=== PATIENT | female | born 1990 | race Caucasian/White ===

== ENCOUNTER 2020-07-26 15:14 | Outpatient (CLI) | payer OTHER, SELFPAY ==
[2020-07-26 16:13] LABS: Basophils Percent Auto 0.3 % (0.2-1.2); Eosinophils Absolute Auto 0.1 K/mm3 (0-0.3); Eosinophils Percent Auto 1.2 % (0-4.4); Hemoglobin 12.4 g/dL (12.0-15.0); Immature Granulocyte Absolute 0.08 K/mm3 (0.00-0.031); Immature Granulocyte Percent A 0.9 % (0-0.5); Lymphocytes Absolute Auto 1.65 K/mm3 (0.9-3.2); Lymphocytes Percent Auto 17.5 % (18.3-44.2); Mean Corpuscular HGB Conc 35.4 g/dl (32-36); Mean Corpuscular Hemoglobin 31.4 pg (26-34); Mean Corpuscular Volume 88.6 fl (80-100); Mean Platelet Volume 10.2 fl (7.4-10.4); Monocytes Absolute Auto 0.6 K/mm3 (0.1-0.6); Monocytes Percent Auto 6.3 % (2.6-8.5); Neutrophils Percent Auto 73.8 % (45.5-73.1); Platelet Count Result 160 k/mm3 (150-375); Red Blood Count 3.95 M/mm3 (4.2-5.4); Red Cell Distribution Width 13.4 % (11.5-14.5); White Blood Count 9.4 K/mm3 (4.5-10.0)
[2020-07-26 16:18] LABS: Add Urine Microscopic? YES; Appearance Urine Cloudy (Clear); Bacteria Urine Trace /hpf; Bilirubin Urine Negative (Negative); Blood Urine Negative (Negative); Color Urine Yellow (Yellow); Glucose Urine UA Negative (Negative); Ketones Urine Negative (Negative); Leukocyte Esterase Ur Trace LEU/UL (NEGATIVE); Mucus Urine Moderate /lpf; Nitrate Urine Negative (Negative); Protein Urine 1+ mg/dL (Negative); RBC Urine 0-2 /hpf (0-2); Specific Grav Ur 1.018 (1.001-1.035); Squamous Epithelial Cell Urine Moderate /hpf (Few); WBC Urine 0-3 /hpf (0-3)
[2020-07-26 16:55] LABS: Thyroid Stimulating Hormone 0.403 uIU/mL (0.465-4.680)
[2020-07-26 17:04] LABS: HIV 1/2 Ab P24 Ag Result Negative (Negative)
[2020-07-26 17:51] LABS: Vitamin D 25 Hydroxy 50.2 ng/mL
[2020-07-26 18:12] LABS: Hepatitis B Surface Antigen Negative (Negative); Rubella IgG Antibody 33.6 IU/ML
[2020-07-26 18:22] LABS: Hepatitis C Virus Antibody Negative (Negative)
[2020-07-27 07:00] LABS: Rapid Plasma Reagin Non-Reactive (NonReactive)
[2020-07-31 22:33] LABS: Hemoglobin 12.2 g/dL (11.7-15.5); MCH 32.2 pg (27.0-33.0); MCV 92.2 FL (80.0-100.0)
== END 2020-07-26 15:15 | disposition home or self-care (01) ==
PROVIDERS: PCP Physician Assistant; Visit Provider Student in an Organized Health Care Education/Training Program
DX: Z34.82 Encounter for supervision of other normal pregnancy, second trimester (principal); Z3A.00 Weeks of gestation of pregnancy not specified
CPT/HCPCS: 36415; 81001; 82306; 83021; 84443; 85025; 86592; 86703; 86762; 86787; 86803; 86850; 86900; 86901; 87086; 87340; G0432

== ENCOUNTER 2020-08-01 13:56 | Outpatient (CLI) | payer OTHER, SELFPAY ==
[2020-08-01 16:06] LABS: Thyroid Stimulating Hormone 0.673 uIU/mL (0.465-4.680)
[2020-08-01 16:10] LABS: Total Triiodothyronine (T3) 1.42 NG/ML (0.97-1.69)
== END 2020-08-01 13:57 | disposition home or self-care (01) ==
PROVIDERS: PCP Physician Assistant; Visit Provider Student in an Organized Health Care Education/Training Program
DX: Z34.82 Encounter for supervision of other normal pregnancy, second trimester (principal); Z3A.00 Weeks of gestation of pregnancy not specified
CPT/HCPCS: 36415; 84436; 84443; 84480

== ENCOUNTER 2020-09-26 11:21 | Outpatient (CLI) | payer OTHER, SELFPAY ==
[2020-09-26 12:50] LABS: Basophils Absolute Auto 0.1 K/mm3 (0.0-0.1); Basophils Percent Auto 0.5 % (0.2-1.2); Eosinophils Absolute Auto 0.2 K/mm3 (0-0.3); Eosinophils Percent Auto 1.5 % (0-4.4); Hematocrit 35.3 % (37.0-47.0); Hemoglobin 12.3 g/dL (12.0-15.0); Immature Granulocyte Absolute 0.11 K/mm3 (0.00-0.031); Lymphocytes Absolute Auto 1.76 K/mm3 (0.9-3.2); Lymphocytes Percent Auto 15.9 % (18.3-44.2); Mean Corpuscular HGB Conc 34.8 g/dl (32-36); Mean Corpuscular Hemoglobin 31.7 pg (26-34); Mean Platelet Volume 10.5 fl (7.4-10.4); Monocytes Absolute Auto 0.6 K/mm3 (0.1-0.6); Monocytes Percent Auto 5.1 % (2.6-8.5); Neutrophils Absolute Auto 8.4 K/mm3 (1.3-6.7); Platelet Count Result 136 k/mm3 (150-375); Red Blood Count 3.88 M/mm3 (4.2-5.4); Red Cell Distribution Width 13.1 % (11.5-14.5); White Blood Count 11.1 K/mm3 (4.5-10.0)
[2020-09-26 13:16] LABS: Glucose 1 Hour PP 50gm Dose 137 mg/dL
== END 2020-09-26 11:22 | disposition home or self-care (01) ==
PROVIDERS: PCP Physician Assistant; Visit Provider Student in an Organized Health Care Education/Training Program
DX: Z34.82 Encounter for supervision of other normal pregnancy, second trimester (principal); Z3A.00 Weeks of gestation of pregnancy not specified
CPT/HCPCS: 36415; 82947; 85025

== ENCOUNTER 2020-10-06 09:02 | Outpatient (CLI) | payer OTHER, SELFPAY ==
[2020-10-06 10:14] LABS: Glucose Fasting Gestational 80 mg/dL (>/=95)
[2020-10-06 13:30] LABS: Glucose 2 Hour Gest 120 mg/dL (>/= 155)
[2020-10-06 14:01] LABS: Glucose 1 Hour Gest 125 mg/dL (>/=180)
[2020-10-06 15:45] LABS: Glucose 3 Hour Gest 96 mg/dL (>/=140)
== END 2020-10-06 09:03 | disposition home or self-care (01) ==
LOC: ANHLAB 09:04
PROVIDERS: PCP Physician Assistant; Visit Provider Student in an Organized Health Care Education/Training Program
DX: R73.09 Other abnormal glucose (principal)
CPT/HCPCS: 36415; 82951; 82952

== ENCOUNTER 2020-10-27 14:54 | Outpatient (CLI) | payer OTHER, SELFPAY ==
[2020-10-27 15:21] LABS: Basophils Absolute Auto 0.1 K/mm3 (0.0-0.1); Basophils Percent Auto 0.4 % (0.2-1.2); Eosinophils Absolute Auto 0.4 K/mm3 (0-0.3); Eosinophils Percent Auto 2.8 % (0-4.4); Hemoglobin 12.7 g/dL (12.0-15.0); Immature Granulocyte Absolute 0.17 K/mm3 (0.00-0.031); Immature Granulocyte Percent A 1.2 % (0-0.5); Lymphocytes Absolute Auto 2.36 K/mm3 (0.9-3.2); Lymphocytes Percent Auto 17.2 % (18.3-44.2); Mean Corpuscular HGB Conc 34.3 g/dl (32-36); Mean Corpuscular Hemoglobin 31.8 pg (26-34); Mean Corpuscular Volume 92.5 fl (80-100); Mean Platelet Volume 10.6 fl (7.4-10.4); Monocytes Percent Auto 7.5 % (2.6-8.5); Neutrophils Absolute Auto 9.7 K/mm3 (1.3-6.7); Neutrophils Percent Auto 70.9 % (45.5-73.1); Platelet Count Result 134 k/mm3 (150-375); Red Cell Distribution Width 12.8 % (11.5-14.5); White Blood Count 13.7 K/mm3 (4.5-10.0)
[2020-10-27 16:19] LABS: HIV 1/2 Ab P24 Ag Result Negative (Negative)
[2020-10-28 09:47] LABS: Rapid Plasma Reagin Non-Reactive (NonReactive)
== END 2020-10-27 14:55 | disposition home or self-care (01) ==
LOC: ANHLAB 14:56
PROVIDERS: PCP Physician Assistant; Visit Provider Student in an Organized Health Care Education/Training Program
DX: Z34.93 Encounter for supervision of normal pregnancy, unspecified, third trimester (principal); Z3A.33 33 weeks gestation of pregnancy
CPT/HCPCS: 36415; 85025; 86592; 86703; G0432

== ENCOUNTER 2020-12-05 01:23 | Outpatient (RCR) | payer OTHER, SELFPAY | END 2021-03-05 23:59 | disposition home or self-care (01) | LOC: ANHOBOP 01:23 | PROVIDERS: PCP Physician Assistant; Visit Provider Student in an Organized Health Care Education/Training Program | DX: O36.8130 Decreased fetal movements, third trimester, not applicable or unspecified (principal); Z3A.38 38 weeks gestation of pregnancy | CPT/HCPCS: 59025 ==

== ENCOUNTER 2020-12-12 12:05 | Outpatient (CLI) | payer OTHER, SELFPAY ==
[2020-12-12 12:36] LABS: Hematocrit 36.5 % (37.0-47.0); Hemoglobin 12.8 g/dL (12.0-15.0); Mean Corpuscular HGB Conc 35.1 g/dl (32-36); Mean Corpuscular Hemoglobin 32.8 pg (26-34); Mean Corpuscular Volume 93.6 fl (80-100); Mean Platelet Volume 11.1 fl (7.4-10.4); Platelet Count Result 138 k/mm3 (150-375); White Blood Count 11.5 K/mm3 (4.5-10.0)
[2020-12-13 06:26] LABS: Rapid Plasma Reagin Non-Reactive (NonReactive)
== END 2020-12-12 12:06 | disposition home or self-care (01) ==
LOC: ANHLAB 12:13
PROVIDERS: PCP Physician Assistant; Visit Provider Student in an Organized Health Care Education/Training Program
DX: Z34.93 Encounter for supervision of normal pregnancy, unspecified, third trimester (principal); Z3A.00 Weeks of gestation of pregnancy not specified
CPT/HCPCS: 36415; 85027; 86592; 86850; 86900; 86901

== ENCOUNTER 2020-12-13 05:35 | Inpatient (IN) | payer OTHER, SELFPAY ==
--- NOTE | 2020-11-21 14:13 | PC.NURSE ---
PATIENT STATES SHE IS HAVING A C/S WITH TUBAL LIGATION. PATIENT STATES DR BECERRA HAS NOT SCHEDULED THE C/S BUT SAID IT WILL PROBABLY BE ON 12/12/20 PATIENT INSTRUCTED TO BE IN OB 2 HOURS BEFORE SURGERY TIME AND NOTHING BY MOUTH AFTER MIDNIGHT THE NIGHT BEFORE SURGERY. PATIENT VERBALIZED HER UNDERSTANDING
[2020-12-13] VITALS (77 sets, daily range): BP systolic 86–117; BP diastolic 33–76; PULSE 44–87; RESP 12–19; TEMP 36.2–36.8; O2SAT 97–100; BMI 31.5
[2020-12-13] MEDS: LACTATED RINGERS 1,000 ML 125 ML IV CONT ×2 (06:20→07:07)
--- NOTE | 2020-12-13 06:38 | LDADM ---
This patient, Mary Bennett, was admitted to Labor/Delivery/Recovery 120 on 12/13/20 at 05:35. Plans for pain management and were discussed with patient. Patient/family oriented to hospital policies and general routines including ID bracelet, bed and alarms, visiting hours, pain management, procedures, bathroom and other care routines, personal items, smoking policy, room service/diet and guest tray routines, infant security routines, and visiting hours. Patient/Family are encouraged to report perceived risks to care and to ask questions if they do not understand what they are told or what they should do. See OBIX for further documentation.
--- NOTE | 2020-12-13 06:47 | WPDANESEPPF ---
Anes - Initial Pre Proc Eval Procedure: Operation Date: 12/13/20 07:30 Proposed Procedures p Repeat Section With Tubal Ligation - Coleen Paniagua MD Date/Time: 12/13/20 06:47 Surgeon: Coleen Paniagua MD Pre Op Diagnosis: Patient Data Age: 30 Gender: F Height: 1.52 m Weight: 73.25 kg Last Vital Signs Temp 36.3 C L 12/13/20 06:30 Pulse 82 12/13/20 06:16 Resp 18 12/13/20 06:30 BP 103/67 12/13/20 06:16 Allergies Allergy/AdvReac Type Severity Reaction Status Date / Time penicillin G Allergy Intermediate Rash Verified 12/13/20 06:28 Home Medications Medication Instructions Recorded Confirmed Type prenat.vits,colby,bbd-hvfs-hmzjn 1 tablet PO DAILY 05/17/20 12/13/20 History Patient hx anesthesia problems: none Family hx anesthesia problems: none Results Review: All pre-operative results and documents have been reviewed as part of the pre-operative evaluation. [facility] Past Medical History Medical History History of miscarriage x 1 Surgical History Surgical History History of section x 2 [place] teeth removed Family History Family History Mother Diabetes mellitus Heart disease Grandparent Uterine cancer Carcinoma of colon Cerebrovascular accident Social History Social History Smoking status: Former smoker Tobacco type: cigarettes Alcohol intake: former Alcohol use details: not since Substance use: never Spiritual care concerns: No Anes - Eval Final PreProcedure Day of Procedure 12/13/20 06:47 Patient weight: normal Heart: regular rate and rhythm Lungs: clear to auscultation Airway: Mallampati scale class II Neurological: alert and oriented Last oral intake: >/= 8 hours ASA classification: II Emergent: no Anesthetic plan: proceed Anesthesia type and monitoring: regional spinal and standard monitoring Results Review: All pre-operative results and documents have been reviewed as part of the pre-operative evaluation. Informed Consent: The patient's anesthetic plan and its attendant risks and benefits were discussed with the patient/family/POA. Questions were solicited and answers provided to the satisfaction of the patient/family/POA.
--- NOTE | 2020-12-13 07:08 | PM.IMHP ---
H&P: HPI History of Present Illness Date/Time: 12/13/20 07:08 Patient is a 30yo LMP 03/21/20 currently 39w2d gestation with JOY 12/18/20. Patient is dated by US on 05/26/20 at 10w gestation. Patient presents to L&D for scheduled repeat section. Patient has a history of two prior C/S. She reports feeling well today. Denies any vaginal bleeding, leakage of fluid, or contractions. Reports good movement. Patient also desires permanent sterilization at time of section. she has been counseled extensively regarding this and signed required consent forms. Chief Complaint: Previous section x 2 Multiparity, desires permanent sterilization Review of Systems Review of Systems: All systems reviewed & are unremarkable except as noted in HPI and below Constitutional: Constitutional: Reports as per HPI, Reports no additional constitutional complaints, Denies chills, Denies fever(s), Denies headache(s) and Denies night sweats Eyes: Eyes: Reports as per HPI and Reports no additional eye complaints ENT: Reports system reviewed and no additional complaints, except as documented, Reports as per HPI, Reports Normal hearing present and Denies headache(s) Cardiovascular: Cardiovascular: Reports as per HPI, Reports no additional cardiovascular complaints, Denies chest pain and Denies dyspnea Respiratory: Respiratory: Reports as per HPI, Reports no additional respiratory complaints, Denies cough and Denies dyspnea Gastrointestinal: Gastrointestinal: Reports as per HPI, Reports no additional gastrointestinal complaints, Denies abdominal pain, Denies change in bowel habits, Denies change in stool character, Denies nausea and Denies vomiting Genitourinary: Genitourinary: Reports no additional female genitourinary complaints, Reports as per HPI, Denies abnormal vaginal bleeding, Denies genital lesions, Denies hot flashes, Denies dyspareunia, Denies pelvic pain, Denies sexual dysfunction, Denies urinary incontinence, Denies vaginal discharge, Denies vaginal dryness and Denies vaginal odor Musculoskeletal: Musculoskeletal: Reports no additional musculoskeletal complaints and Reports as per HPI Integumentary/Breasts: Skin/Breast: Reports system reviewed and no additional complaints, except as docu, Reports as per HPI, Denies breast pain and Denies nipple discharge Neurologic: Reports system reviewed and no additional complaints, except as documented, Reports as per HPI, Reports Normal hearing present and Denies headache(s) Psychiatric: Psychiatric: Reports no additional psychiatric complaints, Reports as per HPI, Denies anxiety and Denies depression Endocrine: Endocrine: Reports no additional endocrine complaints and Reports as per HPI Hematologic/Lymphatic: Hematologic/Lymphatic: Reports no additional hematologic/lymphatic complaints and Reports as per HPI Allergic/Immunologic: Allergic/Immunologic: Reports no additional allergic/immunologic complaints and Reports as per HPI PMFSH Past Medical History Medical History History of miscarriage x 1 Surgical History Surgical History History of section x 2 [place] teeth removed Family History Family History Mother Diabetes mellitus Heart disease Grandparent Uterine cancer Carcinoma of colon Cerebrovascular accident Social History Social History Smoking status: Former smoker Tobacco type: cigarettes Alcohol intake: former Alcohol use details: not since Substance use: never Spiritual care concerns: No Meds Home Medications and Allergies Home Medications Medication Instructions Recorded Confirmed Type prenat.vits,colby,rio-ipvz-neoxj 1 tablet PO DAILY 05/17/20 12/13/20 History Allergies Allergy/AdvReac Type Severity R
--- NOTE | 2020-12-13 07:14 | WPDHPUPDATE1 ---
History and Physical Update Update Date/Time: 12/13/20 07:14 History and Physical has been reviewed, including an updated exam of the patient. There are NO changes in the patient's condition. Risks, benefits, and alternatives have been discussed and questions answered. Patient agrees to proceed with procedure.
[2020-12-13] MEDS: ceFAZolin 2 GM/D5W 50 ML 2 GM/50 ML BAG IVPB (07:30)
[2020-12-13] MEDS: KETOROLAC 30 MG/ML VIAL (*BKC) IV PUSH (08:06)
[2020-12-13] MEDS: SOD HYALURONATE/CARBOXYMETHYLCELLULOSE 5X6 1 EACH TOPICAL (08:32)
--- NOTE | 2020-12-13 09:01 | W.PM.PROC2 ---
Procedure Note - Detailed Date of Procedure 12/13/20 Pre-op Diagnosis Previous section x 2 Multiparity, desires permanent sterilization Post-op Diagnosis same Procedure Performed Repeat low transverse section via Pfannenstiel Bilateral tubal ligation via [place] method Surgeon Coleen Paniagua MD Market Analysis Director Mary Boyd Anesthesia spinal Findings Live male infant in cephalic presentation, apgars 7/9, weighing 7 lbs. 8 oz., clear amniotic fluid, normal appearing uterus, ovaries, and fallopian tubes bilaterally Description of Procedure The patient was taken to the operating room, where she self-transferred to the operating room table. Spinal anesthesia was administered and found to be adequate. The patient was placed in dorsal supine position with a leftward tilt. She was prepped and draped in the usual sterile fashion. Spinal anesthesia was tested and found to be adequate. A Pfannenstiel skin incision was made with a scalpel and carried through to underlying layer of fascia with the Bovie. The fascia was incised in the midline and the incision was extended laterally with the use of forceps and Holloway scissors. The inferior aspect of the fascial incision was grasped with Nguyễn clamps, elevated, and the underlying rectus muscle were dissected off with Holloway scissors. Attention was then turned to the superior aspect of the fascial incision, which in a similar manner, was grasped with Nguyễn clamps, elevated, and the underlying rectus muscles were also dissected off with Holloway scissors. The rectus muscles were in the midline and the peritoneal cavity was entered bluntly. This incision was extended superiorly and inferiorly with good visualization of the bladder and care was taken to avoid blood vessels. A bladder blade was inserted. The vesicouterine peritoneum was identified and incised sharply with Metzenbaum scissors. This incision was extended laterally with Metzenbaum scissors and a bladder flap was created digitally. The bladder blade was replaced. A low-transverse uterine incision was made with a scalpel. This incision was extended laterally with bandage scissors. Amniotomy was performed. Clear amniotic fluid was noted. The infant's head was grasped and gently guided to the level of the uterine incision. The 's head was delivered easily and atraumatically without difficulty followed by the neck, shoulders, and rest of body with gentle fundal pressure. The infant's nose and mouth were suctioned bulb suction. The cord was clamped and cut and the infant was handed off to awaiting nursing staff. A segment of cord was collected for cord gases. Cord blood was also collected. The placenta was then delivered manually with gentle uterine massage. Uterus was exteriorized and cleared of all clots and debris. The uterine incision was reapproximated with 0 Vicryl in a running, locked fashion. A second imbricating layer using 0 Monocryl performed. Excellent hemostasis was noted. On inspection, the uterus, ovaries, and fallopian tubes appeared to be normal bilaterally. Attention was then turned to the right fallopian tube, which was identified and followed through to the fimbriated end. The tube was grasped with a [place] clamp and elevated. With the use of Bovie, a window was created in the mesosalpinx just beneath the tube. Four free ties using 2-0 plain suture were used to create an intervening segment of tube. Two sutures were placed on either side of the intervening segment of tube. An approximate 2-3cm segment of intervening tube was then excised with Metzenbaum scissors. The excised portion of the tube was handed off the field to be sent to pathology for analysis. The tubal stumps were cauterized and excellent hemostasis was noted. In a similar manner, attention was turned to the left fallopian tube, which was identified and followed through to the fimbriated end. This tube was grasped with a Jeff clamp and elevated. With the use of Bovie,
[2020-12-13] MEDS: METHYLERGONOVINE MALEATE 0.2 MG/ML VIAL IM (09:45)
[2020-12-13] MEDS: OXYTOCIN 30 UNITS/NS 500 ML 30 UNITS/500 ML BAG 999 UNITS IV CONT (09:54)
--- NOTE | 2020-12-13 10:00 | SUR.PHASEI ---
Fundal rub performed at 0930. Fundus firm and 2 below uterus. Large amount of blood and multiple large clots expelled. Additional assistance requested. IV fluid bolus started. Dr. Paniagua notified and to bedside at 0942. Manual vaginal sweep performed by Dr. Paniagua. Orders received from Dr. Paniagua for methergine and an additional bag of pitocin. Methergine given IM at 0945 and pitocin hung at 999 ml/hr at 0954. Bakri balloon placed by Dr. Paniagua at 0955 and balloon inflated with 150 ml. Small amount of vaginal bleeding following Bakri placement and fundus firm and 1 below uterus. Labs ordered by Dr. Paniagua and drawn on patient.
--- NOTE | 2020-12-13 10:11 | PM.OBPNVD ---
OB - PN: Subj Subjective Date/time seen: 12/13/20 10:11 Called by RN and notified that patient was experiencing bleeding and passage of large clots. Went to bedside. RN had just removed chux and pad that was completely saturated with blood and clots. Patient resting in bed and reports feeling well. Bimanual exam performed with evacuation of a handful of additional clots. Fundus feels firm, however, lower uterine segment possibly boggy. Methergine x 1 dose administered. A Bakri balloon also placed in uterus and inflated. Not a lot of blood returning in tube at this time. Additional pitocin also ordered to run in IV. VSS. Adequate UOP. Will continue to monitor closely. H/H ordered now. OB - PN: Obj Data Labs CBC & Chem 7: 12/13/20 15:53 OB - PN A/P Time Spent With Patient Time: Total time spent is greater than 50% in coordination of care (as documented) at patient's floor/unit and/or counseling patient:
[2020-12-13 10:15] LABS: Hematocrit 33.2 % (37.0-47.0); Hemoglobin 11.6 g/dL (12.0-15.0)
[2020-12-13] MEDS: OXYTOCIN 30 UNITS/NS 500 ML 30 UNITS/500 ML BAG 125 UNITS IV CONT (10:29)
[2020-12-13] MEDS: miSOPROStol 200 MCG TABLET 800 MCG (11:05)
[2020-12-13] MEDS: miSOPROStol 200 MCG TABLET (11:05)
[2020-12-13] MEDS: TRANEXAMIC ACID 1,000 MG/10 ML AMPUL 1000 MG IV PUSH (11:06)
--- NOTE | 2020-12-13 11:21 | PC.NURSE ---
1105 - Dr. Paniagua placed Cytotec AK, then pushed an additional 150cc of NS into the [facility]
--- NOTE | 2020-12-13 11:26 | P.PNOB_ITS ---
OB - PN: Subj Subjective Date/time seen: 12/13/20 11:26 Called by RN for update. Per RN, uterine fundus seems to go through intermittent periods of being soft and firm. Still 1 fingerbreadth below umbilicus (unchanged). No further significant bleeding, approx. 25cc in collection bag. Went to see patient. Additional saline injected in Bakri balloon. Cytotec 1000mcg administered rectally. TXA 1g IV also given. P atient still reports feeling well. UOP just barely adequate, a 500cc bolus ordered. Vital signs remain stable. Plan is to continue to monitor patient in PACU for a little while longer prior to transfer to unit. Pt to remain NPO. Will repeat CBC at 4:00 p.m. OB - PN: Obj Data Labs CBC & Chem 7: 12/13/20 15:53 Labs: Laboratory Results - last 24 hr 12/13/20 10:02 Hgb 11.6 L Hct 33.2 L OB - PN A/P Time Spent With Patient Time: Total time spent is greater than 50% in coordination of care (as documented) at patient's floor/unit and/or counseling patient:
--- NOTE | 2020-12-13 11:54 | PC.NURSE ---
There has been no additional blood collected into the scanlon bag that is connected to the bakri balloon.
[2020-12-13] MEDS: LACTATED RINGERS 1,000 ML 999 ML IV CONT (12:25)
--- NOTE | 2020-12-13 13:53 | PC.NURSE ---
Report given to Nata Muñoz RN
[2020-12-13] MEDS: DEXTROSE 5%/0.45% SOD CHL 1,000 ML 125 ML IV CONT (15:28)
--- NOTE | 2020-12-13 15:36 | OBPPTRN ---
1400 Patient transferred to post room #285 via stretcher. Support person present. Oriented to unit, room, information board, rooming in, admission packet and security measures. Patient verbalizes understanding.
[2020-12-13 16:09] LABS: Hematocrit 35.4 % (37.0-47.0); Immature Platelet Fraction Pct 9.4 % (0.9-11.2); Mean Corpuscular HGB Conc 33.9 g/dl (32-36); Mean Corpuscular Hemoglobin 32.1 pg (26-34); Mean Corpuscular Volume 94.7 fl (80-100); Mean Platelet Volume 11.2 fl (7.4-10.4); Platelet Count Result 140 k/mm3 (150-375); Red Blood Count 3.74 M/mm3 (4.2-5.4); White Blood Count 16.6 K/mm3 (4.5-10.0)
[2020-12-13] MEDS: SIMETHICONE 80 MG TAB.CHEW PO (21:48)
[2020-12-13] MEDS: IBUPROFEN 600 MG TABLET PO (21:49)
[2020-12-13] MEDS: HYDROcodone/acetaminophen (*CRX) 5-325 MG TABLET 1 TAB PO (21:51)
[2020-12-14 03:02] VITALS: BP 105/54; PULSE 67; RESP 18; TEMP 37
[2020-12-14 05:16] LABS: Basophils Absolute Auto 0.1 K/mm3 (0.0-0.1); Basophils Percent Auto 0.4 % (0.2-1.2); Eosinophils Absolute Auto 0.3 K/mm3 (0-0.3); Eosinophils Percent Auto 2.6 % (0-4.4); Hematocrit 31.5 % (37.0-47.0); Hemoglobin 10.6 g/dL (12.0-15.0); Immature Granulocyte Percent A 0.8 % (0-0.5); Lymphocytes Absolute Auto 2.46 K/mm3 (0.9-3.2); Lymphocytes Percent Auto 19.2 % (18.3-44.2); Mean Corpuscular HGB Conc 33.7 g/dl (32-36); Mean Corpuscular Hemoglobin 31.9 pg (26-34); Mean Corpuscular Volume 94.9 fl (80-100); Mean Platelet Volume 11.3 fl (7.4-10.4); Monocytes Absolute Auto 0.8 K/mm3 (0.1-0.6); Monocytes Percent Auto 6.5 % (2.6-8.5); Neutrophils Absolute Auto 9.1 K/mm3 (1.3-6.7); Neutrophils Percent Auto 70.5 % (45.5-73.1); Platelet Count Result 130 k/mm3 (150-375); Red Blood Count 3.32 M/mm3 (4.2-5.4); White Blood Count 12.8 K/mm3 (4.5-10.0)
--- NOTE | 2020-12-14 07:45 | PC.NURSE ---
PT introductions made and plan of care discussed per post op c section, pain management, breast feeding, daily care activities. PT and spouse both received instructions and care this shift per one to one discussion, mom baby care guide and demonstrations. PT and spouse show no evidence of any barriers to learning at this time and both verbalized understanding of such care.
[2020-12-14 08:05] VITALS: BP 101/54; PULSE 62; RESP 18; TEMP 36.8; O2SAT 99
--- NOTE | 2020-12-14 08:37 | P.PNOB_ITS ---
OB - PN: Subj Subjective Date/time seen: 12/14/20 08:37 Patient doing well this AM. Minimal-moderate pain well controlled with medication. Denies any headache, chest pain, SOB, N/V. Tolerating PO diet. Scanlon catheter in place. No ambulation. Bakri balloon still in place. Minimal drainage overnight. OB - PN: Obj Data Labs CBC & Chem 7: 12/14/20 04:26 Labs: Laboratory Results - last 24 hr 12/13/20 12/13/20 12/14/20 10:02 15:53 04:26 WBC 16.6 H 12.8 H RBC 3.74 L 3.32 L Hgb 11.6 L 12.0 10.6 L Hct 33.2 L 35.4 L 31.5 L MCV 94.7 94.9 MCH 32.1 31.9 MCHC 33.9 33.7 RDW 13.0 13.0 Plt Count 140 L 130 L MPV 11.2 H 11.3 H Immature Gran % (Auto) 0.8 H Neut % (Auto) 70.5 Lymph % (Auto) 19.2 [place] % (Auto) 6.5 Eos % (Auto) 2.6 Baso % (Auto) 0.4 Lymph # (Auto) 2.46 [place] # (Auto) 0.8 H Eos # (Auto) 0.3 Baso # (Auto) 0.1 Abs Immat Gran (auto) 0.10 H Absolute Neuts (auto) 9.1 H Absolute Nucleated RBC 0.0 Nucleated RBC % 0.0 % Immature Plt Fraction 9.4 OB - PN A/P Assessment and Plan (1) Delivery by section using transverse incision of lower segment of uterus: Code(s): O82 - Encounter for delivery without indication Status: Acute Assessment and Plan: POD#1 doing well continue routine postoperative care dc scanlon this AM pain management PRN encourage ambulation (2) hemorrhage: Code(s): O72.1 - Other immediate hemorrhage Status: Acute Assessment and Plan: improved no further heavy bleeding Hgb 10.6 this AM Bakri balloon removed this AM will continue to monitor VSS Time Spent With Patient Time: Total time spent is greater than 50% in coordination of care (as documented) at patient's floor/unit and/or counseling patient: Exam Const: General: cooperative, healthy appearing, comfortable and no acute distress GI: Inspection: non-distended GI Palp: Yes Soft to palpation and No Tenderness to palpation present (GI) Other: fundus firm 2 fingerbreadths below umbilicus, inc covered, bandage c/d/i : Other: Bakri balloon in place, it was deflated and removed
[2020-12-14] MEDS: HYDROcodone/acetaminophen (*CRX) 10-325 MG TABLET 1 TAB PO (09:19)
[2020-12-14 09:20] VITALS: PULSE 62; RESP 18; O2SAT 99
[2020-12-14] MEDS: DOCUSATE SODIUM 100 MG CAPSULE PO ×2 (09:20→21:22)
[2020-12-14] MEDS: SIMETHICONE 80 MG TAB.CHEW PO ×2 (09:20→15:00)
[2020-12-14] MEDS: MULTIVIT/MIN/PREN/FOL AC/IRON TABLET 1 TAB PO (09:20)
[2020-12-14] MEDS: IBUPROFEN 600 MG TABLET PO ×3 (09:21→21:22)
[2020-12-14] MEDS: POLYSACCHARIDE IRON COMPLEX 150 MG CAPSULE PO (09:21)
--- NOTE | 2020-12-14 13:24 | WPDANLDNPN2 ---
Anes-Prog Note L&D-Neuraxial Date/Time: 12/14/20 13:24 Neuraxial medications: intrathecal PF morphine Opiod-related complaints: none Patient feedback: Patient satisfied with post-operative pain management.
--- NOTE | 2020-12-14 13:24 | WPDANLDPN2 ---
Anes-Prog Note L&D Date/Time: 12/14/20 13:24 Comfortable throughout: section Neuraxial method: spinal Epidural/Spinal procedure site: clean & non-tender Neuro status: Neuro function grossly intact. Cardiovascular status: normal Respiratory status: normal Airway patency: baseline Mental status: baseline Post-Op hydration status: normal Vital Signs: Last Vital Signs Temp 36.8 C 12/14/20 08:05 Pulse 62 12/14/20 09:20 Resp 18 12/14/20 09:20 BP 101/54 L 12/14/20 08:05 Pulse Ox 99 12/14/20 09:20 Pain score (VAS): 0 I/O: Intake & Output 12/13/20 12/14/20 12/14/20 23:59 07:59 15:59 Intake Total 1040 2500 600 Output Total 350 2450 750 Balance 690 50 -150 Post-procedural complaints: none Patient feedback: Patient satisfied with anesthetic care.
--- NOTE | 2020-12-14 14:15 | PC.NURSE ---
Consult with pt., mother reports tenderness with feeding. Mother has to breast in cradle with shallow latch reporting tenderness. Mother states infant has not been satisfied after feeding and has supplemented after most feedings. Suggested mother release latch and use cross cradle to assist with deeper latch. Reviewed positioning/alignment in cross cradle, holding breast in ?U? hold and guided asymmetrical latch on. Reviewed rational for each. Infant able to latch correctly within a few attempts. nursed eagerly with steady draws and occasional swallowing noted, some pausing noted. Reviewed signs of a correct latch, effective nursing and suck swallow ratio. Suggested mother stimulate while feeding to increase stimulate, increase intake and to assist with maintaining deep latch. Infant would slip to shallow latch causing tenderness. Demonstrated how to adjust latch more deeply while feeding if needed. Mother reports she can feel the difference in latch with less tenderness. Mother would release latch and would slip to shallow latch. Advised to hold breast during entire feeding to assist with maintaining deep latch for her comfort and increased intake. Nipple care reviewed of lanolin after feedings, warm compresses as needed. Discussed pumping, advised mother to continue to breastfeed and supplement. Infant is feeding adequately at this time to stimulate milk supply and allow mother to rest.
[2020-12-14] MEDS: HYDROcodone/acetaminophen (*CRX) 5-325 MG TABLET 1 TAB PO ×2 (15:01→21:23)
[2020-12-14 18:30] VITALS: BP 125/70; PULSE 75; RESP 18; TEMP 36.9
[2020-12-15] MEDS: HYDROcodone/acetaminophen (*CRX) 5-325 MG TABLET 1 TAB PO ×2 (03:46→10:52)
[2020-12-15] MEDS: SIMETHICONE 80 MG TAB.CHEW PO ×2 (03:46→10:52)
[2020-12-15] MEDS: IBUPROFEN 600 MG TABLET PO ×2 (03:46→10:53)
--- NOTE | 2020-12-15 06:30 | PC.NURSE ---
PT introductions made and plan of care discussed per post op c section, pain management, breast feeding, daily care activities and pending discharge to home. PT and spouse both received instructions and care this shift per one to one discussion, mom baby care guide and demonstrations. PT and spouse show no evidence of any barriers to learning at this time and both verbalized understanding of such care.
--- NOTE | 2020-12-15 08:09 | PM.OBPNVD ---
OB - PN: Subj Subjective Date/time seen: 12/15/20 08:09 Patient doing well. Pain well controlled with medication. Denies any headache, chest pain, SOB, N/V. Tolerating PO diet. Ambulating without difficulty. Voiding well. Passing flatus. Minimal bleeding/lochia. OB - PN: Obj Data Labs CBC & Chem 7: 12/14/20 04:26 OB - PN A/P Assessment and Plan (1) Delivery by section using transverse incision of lower segment of uterus: Code(s): O82 - Encounter for delivery without indication Status: Acute Assessment and Plan: POD#2 doing well continue routine postoperative care encourage ambulation and use of IS pain management PRN pt requesting dc home today will dc home in stable condition emergency precautions reviewed f/u in office in 2 weeks (2) hemorrhage: Code(s): O72.1 - Other immediate hemorrhage Status: Acute Assessment and Plan: resolved no further issues Time Spent With Patient Time: Total time spent is greater than 50% in coordination of care (as documented) at patient's floor/unit and/or counseling patient: Exam Const: General: cooperative, healthy appearing, comfortable and no acute distress GI: Inspection: non-distended GI Palp: Yes Soft to palpation and No Tenderness to palpation present (GI) Other: fundus firm well below umbilicus inc covered, bandage c/d/i Extrem: Right lower extremity: no edema Left lower extremity: no edema Other: no calf tenderness
[2020-12-15 08:10] VITALS: BP 107/63; PULSE 76; RESP 18; TEMP 36.5; O2SAT 100
--- NOTE | 2020-12-15 08:11 | PM.OBDSVD ---
DS: Admitting Diagnosis Discharge Date 12/15/20 Admitting Diagnosis 12/13/20 OB - DS: Summary OB Procedures : None OB Procedures Intrapartum: OB Procedures: : None Peripartum Data Procedures: Procedures Operation Date: 12/13/20 07:30 Actual Procedure Side Surgeon p Section Not Applicable Coleen Paniagua MD Time Spent with Patient Time attestation: Total time spent providing and/or coordinating discharge services: DS: Data Data Completed and Pending Completed studies during hospitalization: Pending at discharge 12/13/20 09:20 Surgical [PTH] Routine Discharge Plan Discharge Attending physician on discharge: Coleen Paniagua Discharging Clinician: Coleen Paniagua Anticipated Discharge Date/Time: 12/15/20 12:00 Patient Disposition: Home, Self-Care Activity: as tolerated and pelvic rest Diet: regular Discharge Instructions: Call office ([phone]) to schedule the following appointments: 1. Postoperative/wound check in 2 weeks. 2. visit in 4-6 weeks. You may take Ibuprofen 600mg every 6 hours as needed for pain. I have sent a prescription for a stronger pain medication, Saragosa, to your pharmacy. You may take this as prescribed for breakthrough pain (pain that is not controlled with Ibuprofen). No driving for at least two weeks. You also may not drive while taking narcotics. Pain medication may make you constipated. It may be helpful to take an [id number] stool softener, such as Colace and/or Senokot, along with the pain medication to help lessen constipation. Call office or go to ED for pain not controlled with medication, headache, chest pain, shortness of breath, fever, chills, persistent nausea or vomiting, severe abdominal pain, heavy vaginal bleeding >2 pads/hour, foul vaginal discharge or odor, any redness near incision, severe pain, pus or drainage from incision site, or problems with your breasts. Patient Instructions: Antibiotic Form Stand Alone Forms: General Discharge Information Follow-up/Referrals: Coleen Paniagua MD [Physician] - Discharge Medications: New hydrocodone-acetaminophen 5-325 mg Tablet 1 - 2 tablet PO Q4-6H PRN (Reason: Moderate Pain (4-6)) Qty: 30 RF: 0 Continued prenat.vits,colby,vza-xwnu-inswt Tablet 1 tablet PO DAILY RF: 0 Date of admission: 12/13/20 05:35 Primary Care Provider: Roland,Ric Keen Admitting Provider: Coleen Paniagua Attending physician on admission: Coleen Paniagua Condition: Stable
[2020-12-15 09:00] VITALS: PULSE 75; RESP 18; O2SAT 99
[2020-12-15] MEDS: DOCUSATE SODIUM 100 MG CAPSULE PO (10:52)
[2020-12-15] MEDS: POLYSACCHARIDE IRON COMPLEX 150 MG CAPSULE PO (10:53)
--- NOTE | 2020-12-15 12:00 | PC.NURSE ---
PT received discharge instructions per protocol and verbalized understanding of such instructions.
--- NOTE | 2020-12-15 12:24 | PC.NURSE ---
Patient viewed the discharge video [facility], The First Two Weeks . Patient was given the opportunity and encouraged to ask questions. Patient verbalized understanding of information shared and has been given the mother/baby guide for home reference.
--- NOTE | 2020-12-15 12:24 | PC.NURSE ---
PT discharged to home ambulatory accompanied by spouse and and taken to waiting car. follow up appointments confirmed.
[2020-12-16 11:09] VITALS: BP 112/63; PULSE 89; RESP 16; TEMP 37.2; O2SAT 100
== END 2020-12-15 12:24 | disposition home or self-care (01) | DRG 540 ==
LOC: ANHLDR 12:53 → ANHOB2 14:03
PROVIDERS: Admitting Provider Student in an Organized Health Care Education/Training Program; PCP Physician Assistant; Visit Provider Student in an Organized Health Care Education/Training Program
PROC: 10D00Z1 Extraction of Products of Conception, Low, Open Approach (ICD-10-PCS; CPT 59514; principal; 2020-12-13 07:30)
DX: O34.211 Maternal care for low transverse scar from previous cesarean delivery (principal); Z37.0 Single live birth; Z3A.39 39 weeks gestation of pregnancy; Z30.2 Encounter for sterilization; O72.1 Other immediate postpartum hemorrhage
CPT/HCPCS: 36415; 85014; 85018; 85025; 85027; 85055; 88302; A9270; C1765; J0131; J0690; J1885; J2210; J2274; J2370; J2590; J7040; J7120

== ENCOUNTER 2024-08-03 11:39 | Emergency (ER) | payer OTHER, SELFPAY ==
--- NOTE | 2024-08-03 11:42 | ED_ITS ---
HPI - URI/Sore Throat General Chief Complaint: Upper Respiratory Infection Stated Complaint: Sore Throat Time Seen by Provider: 08/03/24 11:45 Source: patient and RN notes reviewed Mode of arrival: ambulatory Limitations: no limitations History of Present Illness HPI Narrative: 33 year old female presents with concern for discomfort when she swallows. She reports that started yesterday she is before she ate dinner the felt like something was stuck in her throat. She reports she was able to eat without food getting stuck but it was painful. She reports the area hurts when she coughs or takes a deep breath. She reports it is tender when she pushes on it. She reports she felt short of breath once this morning briefly. She denies chest pain, cough. Denies recent illness. Denies fever. Denies injury or trauma. MD elicited complaint: sore throat Related Data Home Medications ?Medication ?Instructions ?Recorded ?Confirmed ?Last Taken ?Type prenat.vits,colby,kus-trds-kujlj 1 tablet PO DAILY 05/17/20 12/13/20 1 Day Ago History ~12/12/20 Allergies Allergy/AdvReac Type Severity Reaction Status Date / Time penicillin G Allergy Intermediate Rash Verified 02/10/21 15:30 Review of Systems Review of Systems: CONSTITUTIONAL: Denies malaise, chills, sweats, or fever. EYES: Denies visual changes, redness, or discharge. ENT: Denies rhinorrhea, congestion, sinus pain, otalgia and sore throat. Reports throat pain with swallowing CARDIOVASCULAR: Denies chest pain, palpitations, or edema. RESPIRATORY: Reports pain with cough, denies baseline cough. Denies dyspnea. GASTROINTESTINAL: Denies abdominal pain, nausea, vomiting, diarrhea SKIN: Denies rash or itching. MUSCULOSKELETAL: Denies myalgia. NEUROLOGIC: Denies headache. All systems reviewed & are unremarkable except as noted in HPI and below PMFSH Past Medical History Medical History (Updated 08/03/24 @ 12:06 by Ely Candelaria NP) History of miscarriage x 1 Surgical History Surgical History (Updated 02/10/21 @ 15:32 by Louann Kang MA) [place] teeth removed History of section x 3 Family History Family History Mother Diabetes mellitus Heart disease Grandparent Uterine cancer Carcinoma of colon Cerebrovascular accident Social History Social History Smoking status: Former smoker Tobacco type: cigarettes Alcohol intake: former Alcohol use details: not since Substance use: never Living arrangements: with family Spiritual care concerns: No Comments At time of signature, agree with nursing past medical, surgical, social and family history. There is no relevant family history pertinent to the presenting complaint Exam Narrative: GENERAL: Well-appearing, well-nourished, and in no acute distress. HEAD: Normocephalic EYES: PERRLA, conjunctivae clear ENT: Nares clear. Mucous membranes moist. TM pearly cruz with sharp light reflex bilaterally; no tragal tenderness. Oropharynx not erythematous without lesions. Tonsils not enlarged and without exudate, no drooling, no hoarseness, no trismus, uvula midline. No thyromegaly NECK: Supple. No lymphadenopathy CHEST: Clear to auscultation, breath sounds equal. No wheezing, rhonchi, rales, or stridor. No respiratory distress, speaks in full sentences. No costal tenderness HEART: Regular rate and rhythm. No murmur heard. SKIN: Warm, dry, no rash. NEURO: Alert and oriented x3. PSYCH: Normal mood and affect Course Course Emergency Course: Patient advised to call her primary care doctor for further evaluation. Patient is aware of, understands and agrees to treatment plan. Anticipatory guidance given. Patient agrees to follow-up as directed and is aware of reasons to seek care at the emergency department. Portions of this record may have been created with voice recognition software Level of Care: Express Care Visit Vital Signs Vital signs: Vital Signs Temperature 98.3 F 08/03/24 11:46 Pulse Rate 94 08/03/24 11:46 Respiratory Rate 14 08/03/24 11:46 Blood Pressure 122/74 08/03/24 11:46 Pulse Oximetry 100 08/03/24 11:46 Oxygen Delivery Room Air 08/03/24 11:46 Temperature 98.3 F 08/03/24 11:46 Pulse Rate 94 08/03/24 11:46 Respiratory Rate 14 08/03/24 11:46 Blood Pressure 122/74 08/03/24 11:46 Pulse Oximetry 100 08/03/24 11:46 Oxygen Delivery Room Air 08/03/24 11:46 Reviewed. MDM - URI/Sore Throat MDM Narrative Medical decision making narrative: Differential diagnosis considered: Freitas virus, strep pharyngitis, allergic rhinitis, upper respiratory tract infection, sinusitis, rhinosinusitis, nasopharyngitis. viral pharyngitis, otitis media, otitis externa, pneumonia, bronchitis, viral cough syndrome, viral syndrome, and influenza. Exam findings show no acute concerns or changes; patient is non-toxic appearing and is in no distress. Patient is appropriate for outpatient treatment and follow-up. Lab Data Attestation: I reviewed the patient's lab results. Critical Care Time Critical Care Time Critical Care Time: No Discharge Plan Discharge Clinical Impression: Pain of esophagus Patient Disposition: Home Condition: Stable Instructions: General Patient Instructions Additional Instructions: 1) Please follow-up with your primary care doctor in the next 1-2 days. 2) If you have any worsening of symptoms or any other urgent concerns please go to the ER. 3) Please take medications as prescribed and continue taking your home medications as usual. 4) Please read and follow information included in discharge instructions. Patient Language: Icelandic Prescriptions: No Action prenat.vits,colby,cgv-syid-tsxsm Tablet 1 tablet PO DAILY Follow-up/Referrals: Roland,NARESH Farfan [Primary Care Provider] - 1 Day (Esophageal pain) Aamir Castaneda MD [Physician] - Time of Disposition: 12:06
[2024-08-03 11:46] VITALS: BP 122/74; PULSE 94; RESP 14; TEMP 36.8; O2SAT 100
--- OUTSIDE RECORDS SUMMARY | 2024-08-03 13:12 | XMS_ITS | Clinical Summary ---
Author Organization [facility] [employer] Address [address] [place] [address] Care Team Providers Care Log Loader Helper Name Role Phone Unavailable Primary Care Provider Unavailabl e Source Comments [facility],non-[facility] Affiliates and Associated Physician Practices is amultiple site organization consisting of ambulatory clinics and hospital sitesin [place], [place], [place] and [place]. This disclosure is being madepursuant to the Care Everywhere program and may not contain all information available regarding this patient. Last updated 17.[facility] Allergies Active Allergy Reactions Criticality Noted Date Comments Penicillins Unknown High 01/11/2016 Medications * Be aware that medications may not be up to date on this document. Alwaysverify current medications with the patient. No known medications Active Problems No known active problems Social History Tobacco Use Types Packs/Day Years Used Date Smoking Tobacco: Never Comments No Sex and Gender Information Value Date Recorded Sex Assigned at Not on file Legal Sex Female 9:06 AM CDT Gender Identity Not on file Sexual Orientation Not on file Last Filed Vital Signs Vital Sign Reading Time Taken Comments Blood Pressure 117/68 01/11/2016 10:41 AM CORRESPONDENCE RENEW CLERK Pulse - - Temperature - - Respiratory Rate - - Oxygen Saturation - - Inhaled Oxygen Concentration - - Weight 61.7 kg (136 lb) 01/11/2016 10:41 AM CORRESPONDENCE RENEW CLERK Height 152.4 cm (5') 01/11/2016 10:41 AM CORRESPONDENCE RENEW CLERK Body Mass Index 26.56 01/11/2016 10:41 AM CORRESPONDENCE RENEW CLERK Plan of Treatment Health Maintenance Due Date Last Done Comments HIV SCREENING 2005 HEPATITIS C SCREENING 10/08/2008 DTAP/TDAP/TD VACCINES (1 - Tdap) 2009 HEPATITIS B VACCINE (1 of 3 - 19+ 3-dose series) 2009 COVID-19 VACCINE (1 - 2023-2 5 season) 2023 DEPRESSION SCREENING 02/26/2024 INFLUENZA VACCINE (Season Ended) 2024 ZOSTER VACCINE (1 of 2) 2040 HIB VACCINE Aged Out No longer eligi ble based on patient's age to complete this topic HPV VACCINE Aged Out No longer eligi ble based on patient's age to complete this topic MENINGOCOCCAL (Group B) VACC INE SHARED DECISION-MAKING Aged Out No longer eligibl e based on patient's age to complete this topic MENINGOCOCCAL GROUPS A/C/Y/W VACCINE Aged Out No longer eligible b ased on patient's age to complete this topic PNEUMOCOCCAL VACCINE Aged Out No long er eligible based on patient's age to complete this topic [place] [address] [place] [address] [place]ICA[place] [address]
--- OUTSIDE RECORDS SUMMARY | 2024-08-03 13:12 | XMS_ITS | Clinical Summary ---
Author Organization [facility] Address [address] [place] [address] Phone Care Team Providers Care Computer Systems Technician Name Role Phone Unavailable Primary Care Provider Unavailabl e Social History Tobacco Use Types Packs/Day Years Used Date Smoking Tobacco: Never Assessed Comments Unknown Sex and Gender Information Value Date Recorded Sex Assigned at Not on file Legal Sex Female 2:36 PM CDT Gender Identity Not on file Sexual Orientation Not on file Plan of Treatment Health Maintenance Due Date Last Done Comments HEPATITIS B VACCINES (1 of 3 - 19+ 3-dose series) 2009 HPV/Cotest (21-29) 10/14/2011 CERVICAL CANCER SCREENING 2020 HPV/Cotest (30-65) 2020 PAP SMEAR 2020 INFLUENZA VACCINE (#1) 2023 DTAP/TDAP/TD VACCINES (3 - Td or Tdap) 12/28/2025 12/29/2015, 10/16/2014 HPV VACCINES Aged Out No longer eligi ble based on patient's age to complete this topic Insurance [employer] [place]
== END 2024-08-03 12:10 | disposition home or self-care (01) ==
PROVIDERS: Emergency Provider Nurse Practitioner; PCP Physician Assistant
DX: K22.89 Other specified disease of esophagus (principal); Z87.891 Personal history of nicotine dependence
CPT/HCPCS: 99211; G0463